=== PATIENT | female | born 1990 | race African-American/Black ===

== ENCOUNTER 2016-12-13 12:07 | Emergency (ER) | payer OTHER ==
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
[2016-12-13 14:45] VITALS: BP 120/70
== END 2016-12-13 14:47 | disposition home or self-care (01) ==
LOC: ER 12:07
DX: M54.5 Low back pain (principal); V49.50XA Passenger injured in collision with unspecified motor vehicles in traffic accident, initial encounter; F17.200 Nicotine dependence, unspecified, uncomplicated
CPT/HCPCS: 72110; 99283